=== PATIENT | female | born 1975 | race Caucasian/White ===

== ENCOUNTER → 2022-02-27 14:54 | Outpatient (REF) | payer BC, SELFPAY | LOC: ANHLAB 14:54 | PROVIDERS: PCP Internal Medicine Infectious Disease; Visit Provider Surgery Plastic and Reconstructive Surgery | DX: D22.39 Melanocytic nevi of other parts of face (principal); D22.5 Melanocytic nevi of trunk | CPT/HCPCS: 88305 ==